=== PATIENT | female | born 1955 | race Caucasian/White ===

== ENCOUNTER → 2016-08-19 | Outpatient (CLI) | payer OTHER ==
[~2016-08-19] MED LIST: GADOBUTROL 10 ML VIAL IVP ONE
--- NOTE | 2016-08-19 17:55 | MR ---
MRI of the Lumbar Spine (Without and With Contrast) Clinical Indications: M51.36. Other intervertebral disk degeneration. Previous lumbar diskectomy. Radiculopathy, sciatica. Technique: Sagittal and axial T1 and T2 MR sequences of the lumbar spine, without contrast. Axial i maging from T12-S1. Postcontrast sagittal and axial T1-weighted images, with the uneventful intraven ous administration of 6 mL of Gadavist, also performed. Findings: Lumbar vertebral bodies are of normal height, without compression fractures. Conus medull ilda appears normal and ends at L1. T11-T12: Sagittal images demonstrate no disk herniation or stenosis. T12-L1: No disk herniation or stenosis. L1-L2: No disk herniation or stenosis. L2-L3: Mild disk bulge and mild bilateral facet arthropathy resulting in mild central canal stenosis , without neural foraminal stenosis. L3-L4: Mild disk bulge and moderate bilateral facet arthropathy resulting in moderate central canal stenosis and mild bilateral neural foraminal stenosis. L4-L5: Mild disk bulge and moderate bilateral facet arthropathy resulting in moderate central canal stenosis and mild to moderate bilateral neural foraminal stenosis. L5-S1: Moderate degenerative disk disease, moderate loss of disk height, endplate diskogenic changes , previous left laminectomy, left S1 perineural lateral recess enhancing granulation tissue, with pre vious partial left facetectomy, resulting in mild to moderate bilateral neural foraminal stenosis, wi thout central canal stenosis. No diskitis, osteomyelitis, or epidural abscess. Impression: 1. L4-L5: Moderate central canal stenosis secondary to moderate degenerative disk disease and disk bulge, slightly worse than the previous study. 2. L5-S1: Previous left laminectomy, with moderate degenerative disk disease, degenerative retrolis thesis resulting in mild to moderate bilateral neural foraminal stenosis, without central canal steno sis. 3. L3-L4: Moderate central canal stenosis and mild bilateral neural foraminal stenosis secondary to mild disk bulge and moderate bilateral facet arthropathy. 4. No evidence of arachnoiditis, diskitis, or osteomyelitis. 5. Please see above findings at specific disk levels.
== END ==
LOC: FIMAGING 09:01
PROVIDERS: ATTEND Anesthesiology Pain Medicine
DX: M51.36 Other intervertebral disc degeneration, lumbar region (principal); M51.37 Other intervertebral disc degeneration, lumbosacral region; M48.06 Spinal stenosis, lumbar region; M48.07 Spinal stenosis, lumbosacral region; M43.17 Spondylolisthesis, lumbosacral region; M51.26 Other intervertebral disc displacement, lumbar region; M12.88 Other specific arthropathies, not elsewhere classified, other specified site
CPT/HCPCS: A9585

== ENCOUNTER 2016-10-29 23:30 | Observation (INO) | payer OTHER ==
[2016-10-29] MEDS ORDERED: LORazepam 2 MG/ML INJ ONE (23:54)
[2016-10-29] MEDS ORDERED: ONDANSETRON 4 MG/2 ML VIAL ONE (23:55)
[2016-10-30] MEDS ORDERED: LORazepam 2 MG/ML INJ IVP ONE (00:19)
[2016-10-30] MEDS ORDERED: NS 500 ML IV ONE (00:19)
[2016-10-30] MEDS ORDERED: ONDANSETRON 4 MG/2 ML VIAL IVP ONE (00:19)
[2016-10-30 00:22] LABS: % IMMATURE GRANULYOCYTES 0.3 % (0.0-1.1); ABSOLUTE IMMATURE GRANULOCYTES 0.02 10^3/uL (0.00-0.10); ADD DIFF? NO; ADD MORPH? NO; ADD SCAN? NO; ATYPICAL LYMPHOCYTE FLAG 0 (0-99); FRAGMENT RBC FLAG 0 (0-99); HEMATOCRIT 36.5 % (38.0-47.0); HEMOGLOBIN 12.6 g/dL (12.6-16.3); LEFT SHIFT FLG 0 (0-99); LIPEMIA HEMOLYSIS FLAG 90 (0-99); MEAN CELL HEMOGLOBIN 30.5 pg (27.9-34.1); MEAN CELL HEMOGLOBIN CONCENTR. 34.5 g/dL (32.4-36.7); MEAN CELL VOLUME 88.4 fL (81.5-99.8); MEAN PLATELET VOLUME 9.1 fL (8.7-11.7); PLATELET CLUMPS FLAG 0 (0-99); PLATELET COUNT 273 10^3/uL (150-400); RED BLOOD CELL COUNT 4.13 10^6/uL (4.18-5.33); RED CELL DISTRIBUTION WIDTH 13.1 % (11.5-15.2)
[2016-10-30 00:36] LABS: ANION GAP 11 mEq/L (8-16); CALCIUM 10.5 mg/dL (8.5-10.4); CARBON DIOXIDE 22 mEq/l (22-31); CHLORIDE 107 mEq/L (97-110); CREATININE 0.8 mg/dL (0.6-1.0); GLOMERULAR FILTRATION RATE > 60; GLUCOSE 167 mg/dL (70-100); POTASSIUM 3.4 mEq/L (3.5-5.2); SODIUM 140 mEq/L (134-144)
--- NOTE | 2016-10-30 01:42 | EDPHY ---
H & P Stated Complaint: leg weakness, N/V, incontinence Time Seen by Provider: 10/29/16 23:45 HPI/ROS: Chief Complaint: Nausea, vomiting, difficulty walking HPI: 60-year-old woman went to bed at 9 o'clock feeling normal. She woke up at 10:15 a.m. with severe nausea and vomiting. She told her she was unable to walk so he carried her to the bathroom. She did have some incontinence of stool which was loose. Has had multiple episodes of vomiting, complaining of not feeling well. Has been in her usual state of health. No fevers or chills. No chest pain or shortness of breath. Has similar episode about a year ago was admitted and had a negative workup. No recent travel or ill contacts. Does have a history of seizure taking medication and is on medications for that. ROS: 10 point Review of Systems is negative except as noted in the HPI. PMH: Seizures, hypothyroid, Medications: Synthroid, Lamictal Allergies: Tramadol and codeine Social History: No smoking, occasional alcohol, no recreational drug use Family History: non-contributory Physical Exam: Gen: Awake, moderate distress, actively dry heaving HEENT: Eyes: PERRLA, EOMI Mouth: Moist mucosa Neck: Supple, no JVD Chest: nontender, lungs clear to auscultation Heart: S1, S2 normal, no murmur Abd: Soft, non-tender, no guarding Back: no CVA tenderness, no midline tenderness Ext: no edema, non-tender Skin: no rash Neuro: CN II-XII intact, Sensation grossly intact, Strength 5/5 in bilateral upper and lower extremities, patient is not compliant with examination in order to assess her cerebellar function - Personal History Current Tetanus/Diphtheria Vaccine: Unsure Current Tetanus Diphtheria and Acellular Pertussis (TDAP): Unsure - Medical/Surgical History Hx Asthma: No Hx Chronic Respiratory Disease: No Hx Diabetes: No Hx Cardiac Disease: No Hx Renal Disease: No Hx Cirrhosis: No Hx Alcoholism: No Hx HIV/AIDS: No Hx Splenectomy or Spleen Trauma: No Other PMH: [place] Seizure-9 yrs ago;Rt hip surgery 2012;Hypothyroidism; Chronic Pain. Laminectomy 1993 - Social History Smoking Status: Never smoked Constitutional: Initial Vital Signs Heart Rate 95 10/29/16 23:32 Respiratory Rate 20 10/29/16 23:32 Blood Pressure 126/79 H 10/29/16 23:32 O2 Sat (%) 100 10/29/16 23:32 O2 Delivery Mode Nasal Cannula O2 (L/minute) 2 Allergies/Adverse Reactions: tramadol Allergy (Verified 10/29/16 23:36) Home Medications: Medication Instructions Recorded Acyclovir [Zovirax 400 mg (*)] 400 mg PO TID PRN 04/17/16 Buprenorphine HCl [Belbuca] 150 mcg BC BID 04/17/16 Hydrocodone/Acetaminophen [[place] 1 each PO DAILY PRN 04/17/16 7.5-325 Tablet] Levothyroxine [Synthroid 75 mcg 75 mcg PO DAILY06 04/17/16 (*)] Pregabalin [Lyrica 50mg (*)] 50 mg PO HS 04/17/16 Venlafaxine Xr [Effexor Xr 75MG 300 mg PO DAILY 04/17/16 (*)] lamoTRIgine [LamICTAL 100 MG (*)] 150 mg PO BID 04/17/16 Aspirin [Aspirin 81mg (*)] 81 mg PO DAILY #0 tab.chew 04/18/16 Atorvastatin Calcium [Lipitor 10 10 mg PO DAILY #30 tab 04/18/16 mg (*)] predniSONE 60 mg PO DAILY 5 Days 04/18/16 Medical Decision Making - Diagnostics Imaging Results: CT scan of the brain is normal per Dr. Melendez Imaging: Discussed imaging studies w/ call center director Radiologist ED Course/Re-evaluation: 60-year-old presenting with new onset of of nausea vomiting and the which appears to be vertigo although the patient is not able to provide me a very good history. She was acutely vomiting in anxious when she arrives so she was given Ativan and Zofran and a L fluid. This caused her to be more sedate and was not waking up adequately to follow instruction for an NIH the exam. In particular is unable to assess her cerebral function. She had no focal weakness however. CT scan of the brain is normal. I have discussed with Dr. Isbell, neurology. Agrees that there is no indication for CT angiogram at this time and feels that MRI would be more appropriate but does not need to be done acutely. Pt is 3.5 hours after last seen normal. Dr Daniel also agrees that pt does not meet criteria for stroke alert. Patient is somnolent but is arousing to voice. I have discussed with Dr. Krueger, hospitalist, who will admit for symtpom control and further evaluation. - Data Points Laboratory Results: Laboratory Results 10/30/16 00:10 10/30/16 00:10 10/30/16 10/30/16 10/30/16 00:10 00:10 00:10 WBC 7.28 10^3/uL 10^3/uL (3.80-9.50) RBC 4.13 10^6/uL L 10^6/uL (4.18-5.33) Hgb 12.6 g/dL g/dL (12.6-16.3) Hct 36.5 % L % (38.0-47.0) MCV 88.4 fL fL (81.5-99.8) MCH 30.5 pg pg (27.9-34.1) MCHC 34.5 g/dL g/dL (32.4-36.7) RDW 13.1 % % (11.5-15.2) Plt Count 273 10^3/uL 10^3/uL (150-400) MPV 9.1 fL fL (8.7-11.7) Neut % (Auto) 57.1 % % (39.3-74.2) Lymph % (Auto) 31.6 % % (15.0-45.0) [place] % (Auto) 6.5 % % (4.5-13.0) Eos % (Auto) 3.4 % % (0.6-7.6) Baso % (Auto) 1.1 % % (0.3-1.7) Nucleat RBC Rel Count 0.0 % % (0.0-0.2) Absolute Neuts (auto) 4.16 10^3/uL 10^3/uL (1.70-6.50) Absolute Lymphs (auto) 2.30 10^3/uL 10^3/uL (1.00-3.00) Absolute Monos (auto) 0.47 10^3/uL 10^3/uL (0.30-0.80) Absolute Eos (auto) 0.25 10^3/uL 10^3/uL (0.03-0.40) Absolute Basos (auto) 0.08 10^3/uL 10^3/uL (0.02-0.10) Absolute Nucleated RBC 0.00 10^3/uL 10^3/uL (0-0.01) Immature Gran % 0.3 % % (0.0-1.1) Immature Gran # 0.02 10^3/uL 10^3/uL (0.00-0.10) Sodium 140 mEq/L mEq/L (134-144) Potassium 3.4 mEq/L L mEq/L (3.5-5.2) Chloride 107 mEq/L mEq/L (97-110) Carbon Dioxide 22 mEq/l mEq/l (22-31) Anion Gap 11 mEq/L mEq/L (8-16) BUN 27 mg/dL H mg/dL (7-23) Creatinine 0.8 mg/dL mg/dL (0.6-1.0) Estimated GFR > 60 Glucose 167 mg/dL H mg/dL (70-100) Calcium 10.5 mg/dL H mg/dL (8.5-10.4) Triglycerides Pending Cholesterol Pending Cholesterol Risk Factr Pending LDL Cholesterol, Calc Pending LDL Risk Factor Pending VLDL Cholesterol Pending Non-HDL Cholesterol Pending HDL Cholesterol Pending LDL/HDL Ratio Pending Cholesterol/HDL Ratio Pending Medications Given: Discontinued Medications Sodium Chloride (Ns) 500 mls @ 0 mls/hr IV ONCE ONE PRN Reason: Wide Open Stop: 10/30/16 00:20 Last Admin: 10/30/16 00:10 Dose: 500 mls Lorazepam (Ativan Injection) 1 mg IVP EDNOW ONE Stop: 10/30/16 00:20 Last Admin: 10/30/16 00:22 Dose: 1 mg Ondansetron HCl (Zofran) 4 mg IVP EDNOW ONE Stop: 10/30/16 00:20 Last Admin: 10/30/16 00:11 Dose: 4 mg Departure - Departure Disposition: [facility] Clinical Impression: Vomiting, Ataxia Condition: Fair
[2016-10-30] MEDS ORDERED: ONDANSETRON 4 MG/2 ML VIAL IVP PRN (01:54)
[2016-10-30] MEDS ORDERED: ONDANSETRON DISINTEGRATING 4 MG TAB PO PRN (01:54)
[2016-10-30] MEDS ORDERED: ACETAMINOPHEN 325 MG TAB PO PRN (01:54)
[2016-10-30] MEDS ORDERED: NS 1,000 ML IV SCH (02:00)
--- NOTE | 2016-10-30 02:03 | CPEKG ---
Heart Rate: 85 RR Interval: 706 P-R Interval: 176 QRSD Interval: 112 QT Interval: 428 QTC Interval: 509 P [place]: 67 QRS [place]: 67 T Wave [place]: 22 EKG Severity - ABNORMAL ECG - EKG Impression: SINUS RHYTHM EKG Impression: NONSPECIFIC INTRAVENTRICULAR CONDUCTION DELAY Electronically Signed By: Mitra Douglas 30-Oct-2016 10:33:55
[2016-10-30 02:25] LABS: CHOLESTEROL 240 mg/dL (140-220); CHOLESTEROL/HDL RATIO 2.96 RATIO (1.00-4.44); HIGH DENSITY LIPOPROTEIN 81 mg/dL (40-85); LDL/HDL RATIO 1.72 RATIO (1.00-3.22); LOW DENSITY LIPOPROTEIN 139 mg/dL (80-100); NON-HIGH DENSITY LIPOPROTEIN 159 mg/dL (90-129); TRIGLYCERIDE 102 mg/dL (35-135); VERY LOW DENSITY LIPOPROTEINS 20 mg/dL (8-25)
--- NOTE | 2016-10-30 05:16 | PDGENHP ---
History and Physical - Chief Complaint vomiting, ataxia - History of Present Illness Pt is 60/F with hypothyroidism, chronic pain, h/o seizure disorder well controlled on lamictal who presents to the ED with complaint of nausea, vomiting and difficulty walking. On my evaluation, history is provided by patient's boyfriend due to patient sedation. He states he appeared to be in her normal state of health throughout the previous day, they went out to dinner without event. By 9pm, patient reported that she felt tired and went to sleep. She awoke about an hour later with acute onset nausea. On attempt to get up to go to the bathroom, she told her boyfriend she felt she couldn't walk. Denied any vertigo symptoms, just intense nausea. He then carried her to the toilet where she had several episodes of nonbloody/nonbilious vomiting. She continued to feel nausea, was unable to walk, so he decided to bring her to the ED for further evaluation. Of note, patient had a very similar presentation to [facility] in 04/2016. Initial concern was for TIA/CVA because patient reported an ataxic gait/difficulty ambulating, as well as the nausea/vomiting. TIA work up, including TTE, telemetry monitoring, MRI brain and Carotid US, were largely unremarkable. Neurology consultation felt her presentation may have been related to a peripheral neuritis resulting in an atypical vertiginous syndrome. She was given a trial of prednisone for this and scheduled for outpatient neurology follow up. Given patient's current sedation, cannot clarify the details of follow up at this time. On arrival to the ED, patient was afebrile, hemodynamically stable, saturating well on room air. She was heaving and significantly nauseous, without improvement with zofran, so she was given IV ativan. This improved her nausea/ retching, but it also significantly sedated her. Further neuro exam was difficult after this. Her labs showed mild hypokalemia, but were otherwise unremarkable. CT head did not show any acute pathology. She was then admitted to the hospitalist service for further management. History Information - Allergies/Home Medication List Allergies/Adverse Reactions: tramadol Allergy (Verified 10/29/16 23:36) Home Medications: Acyclovir [Zovirax 400 mg (*)] 400 mg PO TID PRN 04/17/16 [Last Taken 1 Month Ago] Buprenorphine HCl [Belbuca] 150 mcg BC BID 04/17/16 [Last Taken 04/16/16 21:00] Hydrocodone/Acetaminophen [[place] 7.5-325 Tablet] 1 each PO DAILY PRN 04/17/16 [ Last Taken 3 Weeks Ago] Levothyroxine [Synthroid 75 mcg (*)] 75 mcg PO DAILY06 04/17/16 [Last Taken 05/22] Pregabalin [Lyrica 50mg (*)] 50 mg PO HS 04/17/16 [Last Taken 3 Days Ago] Venlafaxine Xr [Effexor Xr 75MG (*)] 300 mg PO DAILY 04/17/16 [Last Taken ] lamoTRIgine [LamICTAL 100 MG (*)] 150 mg PO BID 04/17/16 [Last Taken 04/16/16 21 :00] I have personally reviewed and updated: family history, medical history, social history, surgical history - Past Medical History Additional medical history: seizure disorder (one GTC seizure 9 years ago, on lamictal since). chronic pain. degenerative disc disease - Surgical History Additional surgical history: R hip labrum tear repair. laminectomy L5-S1 - Family History Additional family history: M: lymphoma. F: brain tumor. 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 Lives with boyfriend. Review of Systems ROS: 10pt was reviewed & negative except for what was stated in HPI & below Physical Exam Temp Pulse Resp BP Pulse Ox 35.7 C L 96 16 97/61 L 94 10/30/16 03:06 10/30/16 04:00 10/30/16 04:00 10/30/16 03:06 10/30/16 04:00 O2 (L/minute) 2 Constitutional: no apparent distress, not in pain, other (sedated) Eyes: PERRL, anicteric sclera, EOMI, other (bilateral mydriasis; pupils 4mm, but reactive to light) Ears, Nose, Mouth, Throat: moist mucous membranes, hearing normal, ears appear normal, no oral mucosal ulcers Cardiovascular: regular rate and rhythym, no murmur, rub, or gallop, pulses symmetric bilaterally, No JVD, No edema Peripheral Pulses: 2+: dorsalis-pedis (R), dorsalis-pedis (L) Respiratory: no respiratory distress, no rales or rhonchi, clear to auscultation Gastrointestinal: normoactive bowel sounds, soft, non-tender abdomen, no palpable masses, No guarding, No rebound Genitourinary: no bladder fullness, no bladder tenderness Skin: warm, normal color, no rashes or abrasions, no fluctuance, no induration, No mottled Musculoskeletal: full muscle strength, no muscle tenderness, normal joint ROM, no joint effusions Neurologic: other (very sedated but arousable to tactile stimuli; CN II- XII grossly intact; moving all extremities equally; sensation to light touch intact ; unable to assess gait/cerebellar function due to sedation) Lab Data & Imaging Review 10/30/16 04:44 10/30/16 04:44 WBC 7.28 10^3/uL (3.80-9.50) 10/30/16 00:10 RBC 4.13 10^6/uL (4.18-5.33) L 10/30/16 00:10 Hgb 12.6 g/dL (12.6-16.3) 10/30/16 00:10 Hct 36.5 % (38.0-47.0) L 10/30/16 00:10 MCV 88.4 fL (81.5-99.8) 10/30/16 00:10 MCH 30.5 pg (27.9-34.1) 10/30/16 00:10 MCHC 34.5 g/dL (32.4-36.7) 10/30/16 00:10 RDW 13.1 % (11.5-15.2) 10/30/16 00:10 Plt Count 273 10^3/uL (150-400) 10/30/16 00:10 MPV 9.1 fL (8.7-11.7) 10/30/16 00:10 Neut % (Auto) 57.1 % (39.3-74.2) 10/30/16 00:10 Lymph % (Auto) 31.6 % (15.0-45.0) 10/30/16 00:10 [place] % (Auto) 6.5 % (4.5-13.0) 10/30/16 00:10 Eos % (Auto) 3.4 % (0.6-7.6) 10/30/16 00:10 Baso % (Auto) 1.1 % (0.3-1.7) 10/30/16 00:10 Nucleat RBC Rel Count 0.0 % (0.0-0.2) 10/30/16 00:10 Absolute Neuts (auto) 4.16 10^3/uL (1.70-6.50) 10/30/16 00:10 Absolute Lymphs (auto) 2.30 10^3/uL (1.00-3.00) 10/30/16 00:10 Absolute Monos (auto) 0.47 10^3/uL (0.30-0.80) 10/30/16 00:10 Absolute Eos (auto) 0.25 10^3/uL (0.03-0.40) 10/30/16 00:10 Absolute Basos (auto) 0.08 10^3/uL (0.02-0.10) 10/30/16 00:10 Absolute Nucleated RBC 0.00 10^3/uL (0-0.01) 10/30/16 00:10 Immature Gran % 0.3 % (0.0-1.1) 10/30/16 00:10 Immature Gran # 0.02 10^3/uL (0.00-0.10) 10/30/16 00:10 Sodium 140 mEq/L (134-144) 10/30/16 00:10 Potassium 3.4 mEq/L (3.5-5.2) L 10/30/16 00:10 Chloride 107 mEq/L (97-110) 10/30/16 00:10 Carbon Dioxide 22 mEq/l (22-31) 10/30/16 00:10 Anion Gap 11 mEq/L (8-16) 10/30/16 00:10 BUN 27 mg/dL (7-23) H 10/30/16 00:10 Creatinine 0.8 mg/dL (0.6-1.0) 10/30/16 00:10 Estimated GFR > 60 10/30/16 00:10 Glucose 167 mg/dL (70-100) H 10/30/16 00:10 Calcium 10.5 mg/dL (8.5-10.4) H 10/30/16 00:10 Triglycerides 102 mg/dL (35-135) 10/30/16 00:10 Cholesterol 240 mg/dL (140-220) H 10/30/16 00:10 Cholesterol Risk Factr 0.5 (0.2-1.0) 10/30/16 00:10 LDL Cholesterol, Calc 139 mg/dL (80-100) H 10/30/16 00:10 LDL Risk Factor 0.6 (0.2-1.0) 10/30/16 00:10 VLDL Cholesterol 20 mg/dL (8-25) 10/30/16 00:10 Non-HDL Cholesterol 159 mg/dL (90-129) H 10/30/16 00:10 HDL Cholesterol 81 mg/dL (40-85) 10/30/16 00:10 LDL/HDL Ratio 1.72 RATIO (1.00-3.22) 10/30/16 00:10 Cholesterol/HDL Ratio 2.96 RATIO (1.00-4.44) 10/30/16 00:10 Visualized and Interpreted imaging results: Yes Interpretation: CT head: no acute abnormalities Visualized and Interpreted EKG results: Yes EKG Interpretation: Positive for: normal sinsus rhythm Assessment & Plan Assessment: Pt is 60/F with hypothyroidism, remote history of seizure disorder, chronic pain who presents to the ed with nausea/vomiting associated with ataxic gait. ED work up is largely unrevealing, she had a similar presentation to [facility] in 2015, symptoms were attributed to possible peripheral vestibular neuritis. Plan: # nausea/vomiting Symptoms were intractable, since onset at about 10pm. She denied any associated vertigo/room spinning, but was unable to walk. 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 Will provide symptomatic treatment with anti-emetics, IVF hydration and repletion of electrolytes. # ataxic gait Again, patient had a very similar presentation in 04/2016. Work up performed at that time included: MRI brain, carotid US, TTE and casino host. All of this was unrevealing. She was treated with prednisone for presumed vestibular neuritis, as well as initiated on aspirin/statin therapy. CT head performed today is again unremarkable. Will perform full cerebellar neuro exam when patient less sedated, consult neurology to assess need for repeat imaging and obtain PT/OT evaluation. Will also continue telemetry monitoring, check lipid panel and TSH. # hypothyroidism Check TSH and cont home synthroid. # chronic back pain Continue home regimen. # seizure disorder Confirm and cont home med. # dispo: admit to observation # Full code
[2016-10-30 05:26] LABS: % IMMATURE GRANULYOCYTES 0.3 % (0.0-1.1); ABSOLUTE IMMATURE GRANULOCYTES 0.03 10^3/uL (0.00-0.10); ADD DIFF? NO; ADD MORPH? NO; ADD SCAN? NO; ATYPICAL LYMPHOCYTE FLAG 0 (0-99); FRAGMENT RBC FLAG 0 (0-99); HEMOGLOBIN 11.3 g/dL (12.6-16.3); LEFT SHIFT FLG 10 (0-99); LIPEMIA HEMOLYSIS FLAG 80 (0-99); MEAN CELL HEMOGLOBIN 30.4 pg (27.9-34.1); MEAN CELL HEMOGLOBIN CONCENTR. 33.2 g/dL (32.4-36.7); MEAN CELL VOLUME 91.4 fL (81.5-99.8); MEAN PLATELET VOLUME 9.1 fL (8.7-11.7); PLATELET CLUMPS FLAG 0 (0-99); PLATELET COUNT 236 10^3/uL (150-400); RED BLOOD CELL COUNT 3.72 10^6/uL (4.18-5.33); RED CELL DISTRIBUTION WIDTH 13.2 % (11.5-15.2)
[2016-10-30 05:30] LABS: PROTIME(PATIENT) 13.1 SEC (12.0-15.0)
[2016-10-30 05:31] LABS: APTT 26.3 SEC (23.0-38.0)
[2016-10-30 05:36] LABS: ANION GAP 10 mEq/L (8-16); CARBON DIOXIDE 26 mEq/l (22-31); CHLORIDE 108 mEq/L (97-110); CREATININE 0.7 mg/dL (0.6-1.0); GLOMERULAR FILTRATION RATE > 60; GLUCOSE 109 mg/dL (70-100); MAGNESIUM 2.2 mg/dL (1.6-2.3); POTASSIUM 4.3 mEq/L (3.5-5.2); SODIUM 144 mEq/L (134-144)
[2016-10-30] MEDS ORDERED: ACYCLOVIR 400 MG TAB PO PRN (10:11)
--- NOTE | 2016-10-30 10:12 | HOSPPROG ---
Hospitalist Progress Note Assessment/Plan: Pt is 60/F with hypothyroidism, remote history of seizure disorder, chronic pain who presents to the ed with nausea/vomiting associated with ataxic gait. ED work up is largely unrevealing, she had a similar presentation to [facility] in 2015, symptoms were attributed to possible peripheral vestibular neuritis. Reviewed her care with Dr Amin (neurology)/ to get brain MRI and spine MRI/ trial of prednisone. # nausea/vomiting symptoms were intractable last night patient is on Belbuca which may attribute to this no vertiginous symptoms but couldn't walk # ataxic gait ST, PT and OT to see neurology consult CT of head showed nothing acute MRI on last admission showed nothing acute she describes her legs giving out/unable to do foot presses during my eval on last admit was thought to be vestibular neuritis * MRI results from Aug 2016 / lumbar spine/ L4-L5 mod central canal stenosis, disc bulge, L5-S1 retrolisthesis resulting gin mild to mod bilateral neural foraminal stenosis, L3-L4 moderate canal stenosis and mild bilateral neural foraminal stenosis secondary to mild disk bulge and moderate bilateral facet arthropathy. * patient states she is falling frequently, no pain involved, but simply can't hold herself up #. Hyperlipidemia had been on statin in past, but was stopped/ concern causing muscle aches # hypothyroidism Synthroid TSH is 2.58 # chronic back pain * Continue home regimen. # seizure disorder * resume home meds. # dispo: pending/ will need to see if she has the ability to walk. MRI this evening. Subjective: Bella has no pain, but weakness in her legs. Objective: Vital Signs Temp Pulse Resp BP Pulse Ox 37.1 C 99 16 104/58 L 91 L 10/30/16 07:20 10/30/16 07:20 10/30/16 07:20 10/30/16 07:20 10/30/16 07:20 Laboratory Results 10/30/16 04:44 10/30/16 04:44 10/29/16 10/30/16 10/31/16 05:59 05:59 05:59 Intake Total 1000 Output Total 400 300 Balance 600 -300 PT 13.1 SEC (12.0-15.0) 10/30/16 04:44 INR 1.00 (0.83-1.16) 10/30/16 04:44 - Physical Exam Constitutional: no apparent distress, appears nourished, not in pain Eyes: PERRL Ears, Nose, Mouth, Throat: hearing normal Cardiovascular: regular rate and rhythym Respiratory: no respiratory distress Gastrointestinal: normoactive bowel sounds Skin: warm, normal color Musculoskeletal: generalized weakness, other (can't do bilateral push down with her toes) Neurologic: AAOx3 Psychiatric: interacting appropriately ICD10 Worksheet Patient Problems: Problems Problem Status Onset Ataxia Acute Vomiting Acute Dehydration Acute Diarrhea Acute
[2016-10-30] MEDS ORDERED: PSEUDOEPHEDRINE HCL 30 MG TAB PO PRN (10:17)
[2016-10-30] MEDS ORDERED: NON-FORMULARY NEW DRUG (Hydrocodone/Acetaminophen [Norco 7.5-325 Tablet] 1 EACH) PO PRN (10:17)
[2016-10-30] MEDS ORDERED: CETIRIZINE 10 MG TAB PO PRN (10:17)
[2016-10-30] MEDS ORDERED: RIZATRIPTAN BENZOATE PO PRN (10:17)
[2016-10-30] MEDS ORDERED: TEARS/DEXTRAN 70/HYPROMELLOSE 15 ML OPHT.BTL EACHEYE PRN (10:17)
[2016-10-30] MEDS ORDERED: Lamotrigine [Lamictal Xr] 300 MG PO SCH ×2 (11:00→21:00)
[2016-10-30] MEDS: VENLAFAXINE XR 150 MG CAP PO SCH (11:39)
[2016-10-30] MEDS: HYDROCODONE/APAP 10/325 TAB PO PRN ×2 (11:39→16:02)
[2016-10-30] MEDS ORDERED: LORazepam 1 MG TAB PO ONE ×2 (14:54→18:30)
[2016-10-30] MEDS: predniSONE 20 MG TAB PO SCH (15:24)
--- NOTE | 2016-10-30 16:25 | NEUROPROG ---
Assessment: CC: Consulted by Dr. Krueger for N/V, Dizziness, Gait Disturbance.~ Results placed in EMR for her review. Narrative Summary: This female patient was initially seen 04/17/16 as an inpatient consult.~ The day prior to then she developed acute onset dizziness and gait issues.~ She then got N/V.~ She came to the hospital and was admitted.~ A brain MRI w/o con was unremarkable and an echocardiogram and carotid U/S showed no signficant problems.~ Her neurologic exam showed some leg weakness that was fluctuating so it was felt to be likely due to stress.~ She was felt to have a likely acute peripheral vertigo syndrome with dehydration so I gave her 7 days of prednisone 60mg, referred to physical therapy for vestibular rehab, and recommended rehydration.~ She was told to f/u in 4-6 weeks. F/U on 05/20/16.~ Her TSH was high at 6.4 and her total T3 was also low.~ CK normal at 40 in .~ She continues to get better but still has some residual left hip pain for which she is going to see her orthopedist for.~ She did have a flu shot one week prior to getting sick so wonders if this could have caused her illness.~ Her PCM started her on aspirin 81mg qd and lipitor.~ She continued to take Lamictal 150mg bid for seizure prevention after a single seizure in 2006.~ She reported previous abnormal EEG's (x2).~ I will repeat an EEG today and change her Lamictal 150mg bid to Lamictal XR 300mg qd.~ She will f /u~in 4 weeks~to to review the EEG results.~ We also discussed various supplements to include Co-enzyme Q10 and pro-biotics. F/U on 06/25/16.~ She was on levothyroxine for her low thyroid.~ Her EEG on 06/21 was normal.~ She was on Lamictal XR 300mg qd and tolerating it well w/o further seizures (none since 2006).~ She continued to work with her orthopedist and pain doctor for lower back and hip pain.~ She had migraines avg x2 days/ month controlled with maxalt 10mg prn so I refilled that for her.~ She was told to f/u~in 12 months. HPI: The patient had been admitted to [facility] on~10/30/16.~ She had developed acute N/V adn felt global weakness.~ She felt her it was difficult to walk so went to the ER.~ At the ER she was given ativan which improved symptoms but made her drowsy so she was admitted.~ Head CT was normal.~~When I evaluated her she still had bilateral leg weakness but the N/V had resolved. PMHx: prior single seizure 2006, chronic pain disorder, prior laminectomy L5/S1 , degen disc disease, R hip problems, peripheral vertigo syndrome SHx: no tobacco FHx: cancer ROS: Pt denied acute fever, total vision loss, active severe chest pain, respiratory failure, total body severe rash, total bowel/bladder incontinence, psychosis, active seizures, or active bleeding O: bp 104/58 P99 RR16 Satting 91% on 1LNC Temp 37.1C Labs: 04/17/16- CMP Na 145 BUN 28 Gluc 104, LDL 117, TSH elevated at 7 10/30/16- CBC Hct 36.5L, Coags wnl, Chem BUN 28H Gluc 109H, LDL 139H, TSH wnl Rads: 04/17/16- TTE showed no cardio-embolic source 04/17/16- Brain MRI w/o con: unremarkable 04/17/16- CArotid U/S: no hemodynamically significant stenosis 04/17/16- telemetry showed no afib 06/17/16- EEG: essentially normal 10/30/16- Head CT w/o con: unremarkable (I personally visualized the images on~) Assessment: 1. Recurrent Episode of bilateral leg weakness and N/V on 04/16/16 and again on 10/30/16: Unclear cause given prior normal brain MRI and normal head CT. I will evaluate for any brain or spinal cord demylination and also try giving a 5 day course of prednisone to see if it helps symptoms improve. 2. History of Single Seizure in 2006: Normal brain MRI w/o con on 04/17/16 and normal EEG on 06/17/16 so no clear explanation.~ She prefers to stay on an anti- epileptic medication at this time. 3. Hypothyroidism: on levothyroxine to address 4. Migraine Headaches: Avg 2 days/month.~ Controlled with prn Maxalt Plan: - Brain and total spine MRI w/ and w/o con - Continue Maxalt 10mg po prn (Use less than 11 days/month) - Burst of Prednisone 5 days: 60/60/40/40/20 - Continue Lamictal XR 300mg qd - After discharge, F/U in 3-6 weeks in outpatient neurology clinic to assess response after discharge Neurology will continue to follow closely Objective: Vital Signs Temp Pulse Resp BP Pulse Ox 36.8 C 91 18 102/64 90 L 10/30/16 15:58 10/30/16 15:58 10/30/16 15:58 10/30/16 15:58 10/30/16 15:58 Laboratory Results 10/30/16 04:44 10/30/16 04:44 10/29/16 10/30/16 10/31/16 05:59 05:59 05:59 Intake Total 1000 Output Total 400 300 Balance 600 -300 PT 13.1 SEC (12.0-15.0) 10/30/16 04:44 INR 1.00 (0.83-1.16) 10/30/16 04:44 Allergies/Adverse Reactions: tramadol Allergy (Verified 10/29/16 23:36)
[2016-10-30] MEDS ORDERED: HYDROCODONE/APAP 5/325 TAB PO PRN (16:35)
[2016-10-30] MEDS ORDERED: GADOBUTROL 10 ML VIAL IVP ONE (20:18)
[2016-10-30] MEDS ORDERED: PROGESTERONE,MICR 100 MG CAP PO SCH (21:00)
[2016-10-30] MEDS: Buprenorphine Hcl [Belbuca] 150 MCG BC SCH (22:11)
[2016-10-31 05:51] VITALS: PULSE 82
[2016-10-31] MEDS ORDERED: LEVOTHYROXINE 75 MCG TAB PO SCH (06:00)
[2016-10-31 07:40] VITALS: BP 108/67; RESP 15; TEMP 98.8; O2SAT 92
[2016-10-31] MEDS ORDERED: ASPIRIN 81 MG CHEWABLE TAB PO SCH (09:00)
[2016-10-31] MEDS ORDERED: NON-FORMULARY NEW DRUG (Cholecalciferol (Vitamin D3) [Vitamin D3] 5,000 UNIT) PO SCH (09:00)
[2016-10-31] MEDS ORDERED: ESTRADIOL 0.5 MG TAB PO SCH (09:00)
[2016-10-31] MEDS ORDERED: CHOLECALCIFEROL VIT D3 2,000 UNITS TAB/CAP PO SCH (09:00)
[2016-10-31] MEDS ORDERED: Herbals/Supplements -Info Only PO SCH (09:00)
[2016-10-31] MEDS: predniSONE 20 MG TAB PO SCH (09:14)
[2016-10-31] MEDS: Buprenorphine Hcl [Belbuca] 150 MCG BC SCH ×2 (09:14→12:16)
[2016-10-31] MEDS: VENLAFAXINE XR 150 MG CAP PO SCH (09:15)
--- NOTE | 2016-10-31 09:26 | HOSPPROG ---
Hospitalist Progress Note Assessment/Plan: Pt is 60/F with hypothyroidism, remote history of seizure disorder, chronic pain who presents to the ed with nausea/vomiting associated with ataxic gait. ED work up is largely unrevealing, she had a similar presentation to [facility] in 2015, symptoms were attributed to possible peripheral vestibular neuritis. # nausea/vomiting resolved/ eating and drinking well # ataxic gait/bilateral leg weakness symptoms much improved started on steroids MRI of brain and spine show nothing acute CT of head showed nothing acute #. Hyperlipidemia had been on statin in past, but was stopped/ concern causing muscle aches # hypothyroidism Synthroid TSH is 2.58 # chronic back pain * Continue home regimen. # seizure disorder * resume home meds. # dispo: dc today after Dr Amin updates patient and her on plan of care. Subjective: Bella is feeling well, got out of bed without any difficulty. Objective: Vital Signs Temp Pulse Resp BP Pulse Ox 37.1 C 82 15 108/67 92 10/31/16 07:35 10/31/16 07:35 10/31/16 07:35 10/31/16 07:35 10/31/16 07:35 Laboratory Results 10/30/16 04:44 10/30/16 04:44 10/30/16 10/31/16 11/01/16 05:59 05:59 05:59 Intake Total 1000 850 Output Total 400 600 Balance 600 250 PT 13.1 SEC (12.0-15.0) 10/30/16 04:44 INR 1.00 (0.83-1.16) 10/30/16 04:44 - Physical Exam Constitutional: no apparent distress, appears nourished, not in pain Eyes: PERRL Ears, Nose, Mouth, Throat: hearing normal Respiratory: no respiratory distress Gastrointestinal: normoactive bowel sounds Skin: warm, normal color Neurologic: AAOx3 Psychiatric: interacting appropriately, not anxious ICD10 Worksheet Patient Problems: Problems Problem Status Onset Ataxia Acute Vomiting Acute Dehydration Acute Diarrhea Acute
--- NOTE | 2016-10-31 17:03 | GDS ---
[f rep st] DISCHARGE SUMMARY DISCHARGE DIAGNOSES: 1. Nausea and vomiting. 2. Ataxic gait with associated bilateral leg weakness. 3. Hyperlipidemia. 4. Hypothyroidism. 5. Chronic back pain. 6. Seizure disorder. CONSULTATIONS DURING STAY: Dr. Severo Amin. HISTORY: Briefly, the patient is a 60-year-old woman with a history of hypothyroidism, chronic pain , and history of seizure disorder, who presented to the emergency room with complaints of nausea, vo miting, difficulty walking. She was in her normal state of health prior to her admission, and then went to out dinner without event. By 9 p.m., she felt tired and went to sleep. She woke up an hour later with acute onset of nausea. On attempting to go to the bathroom, she told her boyfriend she could not walk. She had no vertiginous symptoms, just intense nausea. She had a very similar prese ntation in April of 2016. At that time, the initial concern was a TIA versus a CVA, because of at axic gait. Neurology consultation felt her presentation may have been related to peripheral neuriti s at that time. During her stay, she had an MRI of her brain and her spine, which showed nothing [place]. She will follow up with Dr. Severo Amin in the outpatient setting. HOSPITAL COURSE PER PROBLEM: 1. Acute nausea and vomiting. Symptoms have resolved. She is eating and drinking well. 2. Ataxic gait with bilateral weakness. Her symptoms have markedly improved. She was given an ora l dose of prednisone. She will continue this for a few more days. A CT of the head showed nothing acute. MRI brain and spine showed nothing acute. 3. Hyperlipidemia. Had been on a statin in the past, but stopped because of concern that this was causing muscle aches. 4. Hypothyroidism. She is on Synthroid. TSH is 2.58. 5. Chronic back pain. Her home regimen had been continued. 6. Seizure disorder. Home medications have been resumed. PENDING LABS AND TESTS: None. CONDITION AT DISCHARGE: Stable. Blood pressure is 108/67, O2 saturation on room air 92%, respirato ry rate is 15, heart rate is 82, temperature 37.1 Celsius. MEDICATIONS AT DISCHARGE: Please see the EMR. DISCHARGE INSTRUCTIONS: Follow up with Dr. Severo Amin for further evaluation. Greater than 35 minutes discharging and coordinating care. /[id number]/MODL
--- NOTE | 2016-10-31 20:04 | NEUROPROG ---
Assessment: CC: Consulted by Dr. Krueger for N/V, Dizziness, Gait Disturbance.~ Results placed in EMR for her review. Narrative Summary: This female patient was initially seen 04/17/16 as an inpatient consult.~ The day prior to then she developed acute onset dizziness and gait issues.~ She then got N/V.~ She came to the hospital and was admitted.~ A brain MRI w/o con was unremarkable and an echocardiogram and carotid U/S showed no signficant problems.~ Her neurologic exam showed some leg weakness that was fluctuating so it was felt to be likely due to stress.~ She was felt to have a likely acute peripheral vertigo syndrome with dehydration so I gave her 7 days of prednisone 60mg, referred to physical therapy for vestibular rehab, and recommended rehydration.~ She was told to f/u in 4-6 weeks. F/U on 05/20/16.~ Her TSH was high at 6.4 and her total T3 was also low.~ CK normal at 40 in .~ She continues to get better but still has some residual left hip pain for which she is going to see her orthopedist for.~ She did have a flu shot one week prior to getting sick so wonders if this could have caused her illness.~ Her PCM started her on aspirin 81mg qd and lipitor.~ She continued to take Lamictal 150mg bid for seizure prevention after a single seizure in 2006.~ She reported previous abnormal EEG's (x2).~ I will repeat an EEG today and change her Lamictal 150mg bid to Lamictal XR 300mg qd.~ She will f /u~in 4 weeks~to to review the EEG results.~ We also discussed various supplements to include Co-enzyme Q10 and pro-biotics. F/U on 06/25/16.~ She was on levothyroxine for her low thyroid.~ Her EEG on 06/21 was normal.~ She was on Lamictal XR 300mg qd and tolerating it well w/o further seizures (none since 2006).~ She continued to work with her orthopedist and pain doctor for lower back and hip pain.~ She had migraines avg x2 days/ month controlled with maxalt 10mg prn so I refilled that for her.~ She was told to f/u~in 12 months. The patient had been admitted to [facility] on~10/30/16.~ She had developed acute N/V adn felt global weakness.~ She felt her it was difficult to walk so went to the ER.~ At the ER she was given ativan which improved symptoms but made her drowsy so she was admitted.~ Head CT was normal.~~When I evaluated her she still had bilateral leg weakness but the N/V had resolved. HPI: F/U on 10/31/16 as hospital inpt consult. Brain and total spine MRI showed no acute changes (mild to moderate stenosis and degen changes in cervical and lumbar region w/o cord compression). Pt's symptoms resolved on prednisone. PT felt safe to ambulate. Doing well. Will d/c. PMHx: prior single seizure 2006, chronic pain disorder, prior laminectomy L5/S1 , degen disc disease, R hip problems, peripheral vertigo syndrome SHx: no tobacco FHx: cancer ROS: Pt denied acute fever, total vision loss, active severe chest pain, respiratory failure, total body severe rash, total bowel/bladder incontinence, psychosis, active seizures, or active bleeding O: bp 104/58 P99 RR16 Satting 91% on 1LNC Temp 37.1C Labs: 04/17/16- CMP Na 145 BUN 28 Gluc 104, LDL 117, TSH elevated at 7 10/30/16- CBC Hct 36.5L, Coags wnl, Chem BUN 28H Gluc 109H, LDL 139H, TSH wnl Rads: 04/17/16- TTE showed no cardio-embolic source 04/17/16- Brain MRI w/o con: unremarkable 04/17/16- CArotid U/S: no hemodynamically significant stenosis 04/17/16- telemetry showed no afib 06/17/16- EEG: essentially normal 10/30/16- Brain MRI and total spine MRI: no acte stroke, demylination, cord compression or acute findings; did show stable moderate cervical stenosis and degenerative lumbar changes that looked stable Assessment: 1. Recurrent Episode of bilateral leg weakness and N/V on 04/16/16 and again on 10/30/16: Unclear cause given normal brain and total spine MRI. Improved on oral prednisone 5 days (60/60/40/40/20). Possibly an atypical migraine variant. 2. History of Single Seizure in 2006: Normal brain MRI w/o con on 04/17/16 and normal EEG on 06/17/16 so no clear explanation.~ She prefers to stay on an anti- epileptic medication at this time. 3. Hypothyroidism: on levothyroxine to address 4. Migraine Headaches: Avg 2 days/month.~ Controlled with prn Maxalt Plan: - Continue Maxalt 10mg po prn (Use less than 11 days/month) - Complete Burst of Prednisone 5 days: 60/60/40/40/20 - Continue Lamictal XR 300mg qd - After discharge, F/U in 2-4 weeks in outpatient neurology clinic to assess response after discharge and get EMG/NCS of legs 35 min spent with patient, majority of time spent counseling on prognosis and treatment options. Objective: Vital Signs Temp Pulse Resp BP Pulse Ox 37.1 C 82 15 108/67 92 10/31/16 07:35 10/31/16 07:35 10/31/16 07:35 10/31/16 07:35 10/31/16 07:35 Laboratory Results 10/30/16 04:44 10/30/16 04:44 10/30/16 10/31/16 11/01/16 05:59 05:59 05:59 Intake Total 1000 850 Output Total 400 600 Balance 600 250 PT 13.1 SEC (12.0-15.0) 10/30/16 04:44 INR 1.00 (0.83-1.16) 10/30/16 04:44 Allergies/Adverse Reactions: tramadol Allergy (Verified 10/29/16 23:36)
== END 2016-10-31 14:46 | disposition home or self-care (01) ==
LOC: INTOOBSV 10-30 01:49 → F3N 10-30 02:55
PROVIDERS: ADMIT Internal Medicine; ATTEND Internal Medicine
DX: R11.2 Nausea with vomiting, unspecified (principal); R26.0 Ataxic gait; R29.898 Other symptoms and signs involving the musculoskeletal system; E78.5 Hyperlipidemia, unspecified; E03.9 Hypothyroidism, unspecified; G89.29 Other chronic pain; M54.9 Dorsalgia, unspecified; M25.552 Pain in left hip; G40.909 Epilepsy, unspecified, not intractable, without status epilepticus
CPT/HCPCS: 70450; 70553; 72156; 72157; 72158; 92610; 93005; 96374; 96375; 97161; 99285; G0378; A9585; J2060; J2405

== ENCOUNTER → 2016-11-21 | Outpatient (CLI) | payer OTHER | LOC: CIMAGING 07:34 | DX: Z12.31 Encounter for screening mammogram for malignant neoplasm of breast (principal) | CPT/HCPCS: G0202 ==

== ENCOUNTER → 2018-01-26 | Outpatient (CLI) | payer OTHER | LOC: BMCIMAGING 16:24 | PROVIDERS: ATTEND Podiatrist Foot & Ankle Surgery | DX: M21.621 Bunionette of right foot (principal) ==

== ENCOUNTER 2018-07-20 06:01 | Emergency (ER) | payer OTHER ==
[2018-07-20] MEDS ORDERED: NS 1,000 ML IV ONE (06:23)
[2018-07-20] MEDS ORDERED: PROMETHAZINE HCL 25 MG/ML INJ ONE (06:24)
[2018-07-20] MEDS ORDERED: PROMETHAZINE HCL 25 MG/ML INJ IVP ONE (06:24)
[2018-07-20] MEDS ORDERED: KETOROLAC 15 MG/1 ML SDV IVP ONE (06:46)
[2018-07-20] MEDS ORDERED: DEXAMETHASONE 10 MG/ML VIAL IVP ONE (06:46)
[2018-07-20] MEDS ORDERED: DEXAMETHASONE 4 MG/ML VIAL ONE (06:50)
[2018-07-20 06:53] LABS: PLATELET COUNT 338 10^3/uL (150-400)
--- NOTE | 2018-07-20 06:53 | EDPHY ---
H & P Stated Complaint: migraine with weakness and vomiting Time Seen by Provider: 07/20/18 06:20 HPI/ROS: HPI The patient presents with which she describes as a typical migraine which she has a history of. She said yesterday she went to her sister's house in [place] and was feeling fine, however her legs became weak while she was there and she was unable to drive home. She called her to take her home. She developed some dizziness as well. Last night she had some need nausea. At about 9:00 p.m. She took a dose of p.o. Imitrex. She had some difficulty trying to sleep and woke up at about midnight feeling dizziness and leg weakness as well as dry heaves she took Zofran 8 mg Ativan possibly 1 mg and Imitrex IM. Her symptoms have persisted throughout the morning so she comes in with her . She is able to walk but describes a shuffling gait. She complains of weakness in both of her legs without paresthesias or pain. She does not have a headache, though she does have nausea and vomiting. The patient has a history of similar symptoms on several occasions beginning in 2016. She was admitted at that time and was evaluated for TIA with negative MRI carotid Dopplers. Since then she has been followed by Dr. Elkins of Neurology. 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 At home she has multiple medications to try if she develops these symptoms. However, she tried all of them tonight and was no better so comes in to the ER this morning.. REVIEW OF SYSTEMS 10 systems were reviewed and negative with the exception of the elements mentioned in the history of present illness. 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 PHYSICAL General Appearance: Alert, no distress Eyes: Pupils equal and round no pallor or injection ENT, Mouth: Mucous membranes moist Respiratory: There are no retractions, lungs are clear to auscultation Cardiovascular: Regular rate and rhythm Gastrointestinal: Abdomen is soft and non-tender, no masses, bowel sounds normal Neurological: A&O, cranial nerves 2-12 intact, 5/5 strength in her upper extremities with no pronator drift, normal finger to nose testing, lower extremities are 5/5 in strength as well there is a mild tremor in both of her legs, sensation is intact to light touch throughout her legs Skin: Warm and dry, no rashes Musculoskeletal: Neck is supple non tender Extremities: symmetrical, full range of motion Psychiatric: Patient is oriented X 3, there is no agitation Source: Patient, Family, Old records Exam Limitations: No limitations - Personal History Current Tetanus/Diphtheria Vaccine: Yes Current Tetanus Diphtheria and Acellular Pertussis (TDAP): Yes - Medical/Surgical History Hx Asthma: No Hx Chronic Respiratory Disease: No Hx Diabetes: No Hx Cardiac Disease: No Hx Renal Disease: No Hx Cirrhosis: No Hx Alcoholism: No Hx HIV/AIDS: No Hx Splenectomy or Spleen Trauma: No Other PMH: [place] Seizure-9 yrs ago;Rt hip surgery 2012;Hypothyroidism; Chronic Pain, Laminectomy 1993, Depression, Recently here Leg weakness - Social History Smoking Status: Never smoked Constitutional: Initial Vital Signs Temperature (C) 36.3 C 07/20/18 06:03 Heart Rate 97 07/20/18 06:03 Respiratory Rate 16 07/20/18 06:03 Blood Pressure 127/84 H 07/20/18 06:03 O2 Sat (%) 99 07/20/18 06:03 O2 Delivery Mode Room Air O2 (L/minute) 3 Allergies/Adverse Reactions: tramadol Allergy (Verified 07/20/18 06:04) Home Medications: Medication Instructions Recorded Levothyroxine [Synthroid 75 mcg 75 mcg PO DAILY06 04/17/16 (*)] Venlafaxine Xr [Effexor Xr] 300 mg PO DAILY 10/30/16 lamoTRIgine [LamICTAL XR] 300 mg PO HS 10/30/16 Medical Decision Making Differential Diagnosis: 62-year-old female who has a history of atypical migraines which consist of bilateral leg weakness, dizziness, nausea and vomiting presents with a moderate to severe episode today. Symptoms have not improved with Imitrex, Zofran, Ativan. She presents here for further care. On exam, she actually does have full strength of her legs and no cerebellar findings. She does have a faint tremor of her legs which is worse with movement. She does not have a headache. Plan for treatment with IV fluids, Toradol, Phenergan, Decadron. I will check basic labs I expect they will be normal. I will plan to observe her for several hours here in the emergency department if her symptoms iza, then she could be appropriately discharged home, if not, then she may require admission to the hospital. She is happy with this plan. At 7:30 a.m.- Case is signed out to Dr. Douglas pending patient's reassessment. - Data Points Laboratory Results: Laboratory Results 07/20/18 06:20 07/20/18 06:20 Medications Given: Discontinued Medications Dexamethasone (Decadron Injection) 10 mg IVP EDNOW ONE Stop: 07/20/18 06:47 Last Admin: 07/20/18 06:51 Dose: 10 mg Sodium Chloride (Ns) 1,000 mls @ 0 mls/hr IV EDNOW ONE; Wide Open PRN Reason: Protocol Stop: 07/20/18 06:24 Last Admin: 07/20/18 06:25 Dose: 1,000 mls Ketorolac Tromethamine (Toradol) 15 mg IVP EDNOW ONE Stop: 07/20/18 06:47 Last Admin: 07/20/18 06:51 Dose: 15 mg Promethazine HCl (Phenergan) 12.5 mg IVP ONCE ONE Stop: 07/20/18 06:25 Last Admin: 07/20/18 06:25 Dose: 12.5 mg Departure - Departure Disposition: Home, Routine, Self-Care Clinical Impression: Atypical migraine, Dizziness Leg weakness Qualifiers: Laterality: bilateral Qualified Code(s): R29.898 - Other symptoms and signs involving the musculoskeletal system Condition: Fair Instructions: Migraine Headache (ED) Additional Instructions: Please take her medications as prescribed. I would recommend that you continue taking steroids. Please return to the ER if worse in any way. Please follow- up with Dr. Elkins in the next 1-2 days. Referrals: Arlin Barboza MD [Primary Care Provider] - As per Instructions Severo Amin DO [Medical Doctor] - As per Instructions
[2018-07-20 11:31] VITALS: BP 103/72
== END 2018-07-20 11:31 | disposition home or self-care (01) ==
DX: G43.909 Migraine, unspecified, not intractable, without status migrainosus (principal); R42 Dizziness and giddiness; R29.898 Other symptoms and signs involving the musculoskeletal system; E86.9 Volume depletion, unspecified
CPT/HCPCS: 96374; J1100; J1885; J2550

== ENCOUNTER 2018-08-05 14:33 | Inpatient (IN) | payer OTHER ==
--- NOTE | 2018-08-05 14:43 | EDPHY ---
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;Rt hip surgery 2012;Hypothyroidism; Chronic Pain, Laminectomy 1993, atypical migraines, Leg weakness - Social History Smoking Status: Never smoked Constitutional: Initial Vital Signs Temperature (C) 36.7 C 08/05/18 14:34 Heart Rate 101 H 08/05/18 14:34 Respiratory Rate 30 H 08/05/18 14:34 Blood Pressure 119/76 08/05/18 14:34 O2 Sat (%) 100 08/05/18 14:34 O2 Delivery Mode Nasal Cannula O2 (L/minute) 2 Allergies/Adverse Reactions: tramadol Allergy (Verified 07/20/18 06:04) Home Medications: Medication Instructions Recorded Levothyroxine [Synthroid 75 mcg 75 mcg PO DAILY06 04/17/16 (*)] Venlafaxine Xr [Effexor Xr] 300 mg PO DAILY 10/30/16 lamoTRIgine [LamICTAL XR] 300 mg PO HS 10/30/16 Maxalt 08/05/18 Meclizine HCl [Meclizine HCl 25 mg 25 mg PO QID PRN #14 tab 08/05/18 (RX,OTC)] Phenergan 12.5mg supp (*) 08/05/18 Medical Decision Making - Diagnostics Imaging Results: Imaging Impressions Brain MRI 08/05/18 17:32 Impression: Normal MRI of the brain without contrast. Results called and discussed with Amandeep Westbrook MD at 08/05/2018 18:54. Imaging: Discussed imaging studies w/ banquet server on call Radiologist ED Course/Re-evaluation: CHIEF COMPLAINT: Dizziness, nausea, vomiting HISTORY OF PRESENT ILLNESS: This patient is a 62 year old female with history of atypical migraines. She presents with dizziness, nausea, vomiting, headaches, and diplopia. This morning , she had sudden onset dizziness around 8am while at work. She had associated bilateral leg weakness, which she specifies began in the right leg but seems equal currently. She has medications at home for migraines including one for headache, antiemetics, and steroids. She tried these, not including the steroid , without relief. She went home and continued to feel poorly. She then developed diplopia which she has never had before, so she and her decided to come to the ED for evaluation. She endorses history of grand mal seizure, and takes Lamictal and magnesium. She has had a recent MRI and full neurologic evaluation with Dr. Amin, neurologist. REVIEW OF SYSTEMS: A comprehensive 10 system review of systems is otherwise negative aside from elements mentioned in the history of present illness and medical decision making. PHYSICAL EXAM: HR, BP, O2 Sat, RR. Temp noted General Appearance: Alert, well hydrated, appropriate, and non-toxic appearing. Head: Atraumatic without scalp tenderness or obvious injury Eyes: Nystagmus with leftward gaze. Pupils equal, round, reactive to light and accommodation, EOMI, no trauma, no injection. Ears: Clear bilaterally, no perforation, normal landmarks Nose: Atraumatic, no rhinorrhea, clear. Throat: There is no erythema or exudates, no lesions, normal tonsils, mucus membranes moist. Neck: Supple, 2+ carotid upstroke, nontender, no lymphadenopathy. Respiratory: No retractions, no distress, no wheezes, and no accessory muscle use. Lungs are clear to auscultation bilaterally. Cardiovascular: Regular rate and rhythm, no murmurs, rubs, or gallops. Bilateral carotid, radial, dorsalis pedis, and posterior tibial pulses intact. Good capillary refill all extremities. Gastrointestinal: Abdomen is soft, nontender, non-distended, no masses, no rebound, no guarding, no peritoneal signs. Musculoskeletal: Normal active ROM of all extremities, atraumatic. Neurological: Alert, appropriate, and interactive. The patient has normal DTRs and non-focal cranial nerves, motor, sensory, and cerebellar exam. Skin: No rashes, good turgor, no nodules on palpation. Past medical history: History of seizure. Hypothyroid. Chronic pain. Atypical migraines. Past surgical history: Laminectomy. Right hip surgery. Family history: Noncontributory Social history: Employed, works at [employer]. . Does not abuse tobacco, drugs, or alcohol. DIFFERENTIAL DIAGNOSIS: The differential diagnosis for the patient's dizziness included but was not limited to peripheral and central causes of vertigo, orthostatic causes including dehydration, cardiogenic and neurogenic causes, and blood loss. MEDICAL DECISION MAKIN62 y/o female presents with dizziness, nausea, leg weakness onset this morning. On exam she has notable nystagmus with leftward gaze. Plan to administer Ativan , Decadron, Toradol, and Reglan for symptom relief. 16:50 Patient felt worse after using bedside commode with increasing dizziness. She is now back in bed and sleeping. Reassessed. Patent continues to feel only 50% better and complains of continued dizziness. Plan for MRI brain without contrast. 18:[address] Torres, radiologist. MRI brain negative for acute processes. Reassessed patient. Discussed imaging results. Her symptoms are somewhat resolved at this time. Discussed admission vs. outpatient followup. She and her will discuss this. 19:32 Patient states she is feeling better and would like to go home. Plan to discharge with referral to ENT and prescription for meclizine. Plan for road test prior to discharge. 19:36 When the patient attempted to get up, she was unable to walk. Given this she is not safe for outpatient follow up at this time. We discussed admission for further management of symptoms. She is amenable to this. Spoke with hospitalist service. Dr. Martinez accepts admission for BPPV. - Data Points Medications Given: Discontinued Medications Dexamethasone (Decadron Injection) 10 mg IVP EDNOW ONE Stop: 08/05/18 14:49 Last Admin: 08/05/18 15:00 Dose: 10 mg Ketorolac Tromethamine (Toradol) 30 mg IVP EDNOW ONE Stop: 08/05/18 14:49 Last Admin: 08/05/18 15:00 Dose: 30 mg Lorazepam (Ativan) 1 mg PO EDNOW ONE Stop: 08/05/18 14:49 Last Admin: 08/05/18 16:16 Dose: Not Given Lorazepam (Ativan Injection) 1 mg IVP EDNOW ONE Stop: 08/05/18 16:14 Last Admin: 08/05/18 16:16 Dose: 1 mg Meclizine HCl (Meclizine Hcl) 12.5 mg PO EDNOW ONE Stop: 08/05/18 19:33 Last Admin: 01/30/19 19:40 Dose: 12.5 mg Metoclopramide HCl (Reglan Injection) 10 mg IVP EDNOW ONE Stop: 08/05/18 14:49 Last Admin: 08/05/18 15:01 Dose: 10 mg Ondansetron HCl (Zofran) 4 mg IVP EDNOW ONE Stop: 08/05/18 16:14 Last Admin: 08/05/18 16:16 Dose: 4 mg Departure - Departure Disposition: [facility] Acute Clinical Impression: BPPV (benign paroxysmal positional vertigo) Qualifiers: Laterality: left Qualified Code(s): H81.12 - Benign paroxysmal vertigo, left ear Condition: Fair Instructions: Dizziness (ED) Additional Instructions: Drink plenty of fluids. Return to the emergency department for headache, numbness, weakness, severe vertigo, neck pain, inability to tolerate fluids by mouth or other worsening of condition. Please follow up with your primary care provider. You may also follow up with ENT for further evaluation of your vertigo symptoms as we discussed. Prescriptions: Meclizine HCl [Meclizine HCl 25 mg (RX,OTC)] 25 mg PO QID PRN #14 tab PRN Reason: Dizziness Report Scribed for: Amandeep Westbrook Report Scribed by: Irene Chaves Date of Report: 08/05/18 Time of Report: 14:43
[2018-08-05] MEDS ORDERED: ONDANSETRON 4 MG/2 ML VIAL ONE (14:44)
[2018-08-05] MEDS ORDERED: METOCLOPRAMIDE 10 MG/2 ML VIAL IVP ONE (14:48)
[2018-08-05] MEDS ORDERED: LORazepam 1 MG TAB PO ONE (14:48)
[2018-08-05] MEDS ORDERED: KETOROLAC 30 MG/1 ML SDV IVP ONE (14:48)
[2018-08-05] MEDS ORDERED: DEXAMETHASONE 10 MG/ML VIAL IVP ONE (14:48)
[2018-08-05] MEDS ORDERED: LORazepam 2 MG/ML INJ IVP ONE (16:13)
[2018-08-05] MEDS ORDERED: ONDANSETRON 4 MG/2 ML VIAL IVP ONE (16:13)
[2018-08-05] MEDS ORDERED: LORazepam 2 MG/ML INJ ONE (16:14)
[2018-08-05] MEDS ORDERED: MECLIZINE HCL 25 MG TAB PO ONE (19:32)
[2018-08-05] MEDS ORDERED: PROMETHAZINE HCL 25 MG/ML INJ IVP PRN (20:04)
[2018-08-05] MEDS ORDERED: HYDROCODONE/APAP 5/325 TAB PO PRN (20:04)
[2018-08-05] MEDS ORDERED: LORazepam 0.5 MG TAB PO PRN (20:04)
[2018-08-05] MEDS ORDERED: ONDANSETRON 4 MG/2 ML VIAL IVP PRN (20:04)
[2018-08-05] MEDS ORDERED: ACETAMINOPHEN 325 MG TAB PO PRN (20:04)
[2018-08-05] MEDS ORDERED: oxyCODONE IR 5 MG TAB PO PRN (20:04)
[2018-08-05] MEDS ORDERED: LORazepam 2 MG/ML INJ IVP PRN (20:04)
[2018-08-05] MEDS ORDERED: ONDANSETRON DISINTEGRATING 4 MG TAB PO PRN (20:04)
--- NOTE | 2018-08-05 20:17 | PDGENHP ---
History and Physical - Chief Complaint difficulty walking/n/v - History of Present Illness 62 yo F with PMH that includes seizure x 1 eleven years ago as well as migraine presenting with recurrence of difficulty walking associated with n/v and diplopia. Patient has been seen at this hospital for similar issues most recently 2 weeks ago in the ER and prior to that had 2 hospitalizations for the same sxs in 2016 and 2017. She has been seen by neurology both on prior IP stays and as an OP and the diagnosis has been felt to be either peripheral vertigo syndrome or migraine variant with negative workup including brain and spinal MRIs and sxs that improved on prednisone. She notes that up until this episode, her last episodes were a year apart and less severe. She was worked up in the ER with brain MRI that was normal, labs unremarkable, however despite multiple medications including dexamethasone and migraine cocktail she was unable to walk and continued to have n/v and gait instability. On exam she had severe horizontal nystagmus and significant ataxia with ambulation. She specifically denies any true vertigo sxs and has a hard time describing what she is experiencing when she tries to walk--she feels there is some weakness contributing but it comes and goes and seems to be only present when she is trying to walk. She did experience temporary diplopia today which she has never experienced in the past and led to her decision to come to ER today. History Information - Allergies/Home Medication List Allergies/Adverse Reactions: tramadol Allergy (Verified 07/20/18 06:04) Home Medications: Venlafaxine Xr [Effexor Xr] 300 mg PO DAILY 10/30/16 [Last Taken 08/05/18 07:45] lamoTRIgine [LamICTAL XR] 300 mg PO HS 10/30/16 [Last Taken 08/04/18] Aspirin [Aspirin 325 mg (*)] 325 mg PO DAILY PRN 08/05/18 [Last Taken 3 Weeks Ago ~07/15/18] Herbals/Supplements -Info Only 1 ea PO DAILY 08/05/18 [Last Taken 08/05/18] Ibuprofen [Motrin (*)] 400 mg PO Q6H PRN 08/05/18 [Last Taken 1 Week Ago ~] Levothyroxine [Synthroid 88 mcg (*)] 88 mcg PO DAILY06 08/05/18 [Last Taken 07:45] Magnesium Oxide [Magnesium] 400 mg PO HS 08/05/18 [Last Taken 08/04/18] Ondansetron Odt [Zofran Odt 4 mg (*)] 4 mg PO Q4H PRN 08/05/18 [Last Taken 08/05 14:00] Polyethylene Glycol 3350 [Miralax 17 gm (*)] 17 gm PO DAILY PRN 08/05/18 [Last Taken 1 Week Ago ~07/29/18] Promethazine HCl [Phenergan] 25 mg RC BID PRN 08/05/18 [Last Taken 08/05/18 11: 00] Rizatriptan Benzoate [Rizatriptan] 10 mg PO ONCE 08/05/18 [Last Taken 08/05/18 09:00] SUMAtriptan [Imitrex Sc 6 MG Inj (RX)] 6 mg SQ Q2H PRN MDD 12mg 08/05/18 [Last Taken 2 Weeks Ago ~07/22/18] Tetrahydrozoline 0.05% [Visine (*)] 1 drop EACHEYE BID PRN 08/05/18 [Last Taken Unknown] I have personally reviewed and updated: family history, medical history, social history, surgical history - Past Medical History hypertension, migraines, psychiatric history (depression) Additional medical history: seizure disorder (one GTC seizure 11 years ago, on lamictal since). chronic pain. degenerative disc disease. hypothyroid - Surgical History Additional surgical history: R hip labrum tear repair. laminectomy L5-S1 - Family History Positive for: cancer (mother and sister both with NHL) Additional family history: M: lymphoma. F: brain tumor. 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 Lives with boyfriend. Review of Systems Review of Systems: ROS: 10pt was reviewed & negative except for what was stated in HPI & below Physical Exam Physical Exam: Temp Pulse Resp BP Pulse Ox 36.7 C 113 H 16 119/68 93 08/05/18 14:34 08/05/18 19:37 08/05/18 19:37 08/05/18 19:37 08/05/18 19:37 O2 (L/minute) 2 Constitutional: no apparent distress, appears nourished Eyes: PERRL, anicteric sclera, other (coarse vertical nystagmus bilaterally) Ears, Nose, Mouth, Throat: moist mucous membranes, hearing normal Cardiovascular: regular rate and rhythym, no murmur, rub, or gallop, No edema Respiratory: no respiratory distress, no rales or rhonchi Gastrointestinal: normoactive bowel sounds, soft, non-tender abdomen Genitourinary: no bladder tenderness Skin: warm, normal color Musculoskeletal: full muscle strength, No asymmetric calves Neurologic: AAOx3, CN II-XII Intact Psychiatric: interacting appropriately, not anxious, not encephalopathic Lab Data & Imaging Review 08/05/18 19:45 08/05/18 19:45 Visualized and Interpreted imaging results: Yes Interpretation: brain MRI : unremarkable Assessment & Plan Assessment: BPPV (benign paroxysmal positional vertigo) (Acute) 62 yo F with hx of a one time seizure on chronic antiepileptics as well as hypothyroid and recurrent ataxia presenting with ataxia/diplopia and n/v # recurrent ataxia/n/v: 3rd hospitalization for the same in the last couple of years with significant w/u including multiple brain MRIs (including today) as well as C/T/L spine MRI and evaluation by neurology. [place] to be either peripheral vertigo syndrome such as BPPV or related to atypical migraine. Sxs now recurred twice in the last 2 weeks and severe this time--unable to ambulate and significant nystagmus on exam. Will monitor overnight, continue steroids and prn antiemetics and meclizine. Will consult neurology and pt/ot for possible Zuleyma maneuver. Patient with plans to f/u with ENT after discharge. # hx of seizure: patient with hx of single seizure episode 11 years ago attributed potentially to tramadol per her report for which she continues daily anti epileptics--per neuro notes this is per her choice, will continue lamictal # hypothyroid: continue synthroid, recent tsh wnl # migraine: continued on her home regimen including imitrex and rixatriptan # observation status # Patient new to my care. Old records reviewed and summarized as above. Care plan reviewed with ER doctor as above, further hx obtained from boyfriend present at bedside.
[2018-08-05] MEDS ORDERED: ASPIRIN 325 MG TAB PO PRN (20:29)
[2018-08-05] MEDS ORDERED: IBUPROFEN 200 MG TAB PO PRN (20:29)
[2018-08-05] MEDS ORDERED: POLYETHYLENE GLYCOL 3350 17 GM PKT PO PRN (20:29)
[2018-08-05] MEDS ORDERED: TETRAHYDROZOLINE 0.05% 15 ML OPHT.BTL EACHEYE PRN (20:29)
[2018-08-05 20:41] LABS: PLATELET COUNT 357 10^3/uL (150-400)
[2018-08-05] MEDS ORDERED: Lamotrigine [Lamictal Xr] 300 MG PO SCH (21:00)
[2018-08-05] MEDS: MAGNESIUM OXIDE 400 MG TAB PO SCH (23:11)
[2018-08-05] MEDS: NS 1,000 ML IV SCH (23:11)
[2018-08-05] MEDS: lamoTRIgine 100 MG TAB PO SCH (23:11)
[2018-08-05] MEDS: MECLIZINE HCL 12.5 MG TAB PO PRN (23:30)
[2018-08-06] MEDS ORDERED: NS 500 ML IV ONE ×2 (00:42)
[2018-08-06] MEDS: NS 1,000 ML IV SCH ×2 (01:31→03:01)
[2018-08-06] MEDS ORDERED: NS 1,000 ML IV ONE (01:35)
[2018-08-06] MEDS: LEVOTHYROXINE 88 MCG TAB PO SCH (04:59)
[2018-08-06] MEDS: lamoTRIgine 100 MG TAB PO SCH ×2 (08:55→21:00)
[2018-08-06] MEDS: predniSONE 20 MG TAB PO SCH (08:55)
[2018-08-06] MEDS: VENLAFAXINE XR 150 MG CAP PO SCH (08:55)
--- NOTE | 2018-08-06 10:00 | HOSPPROG ---
Hospitalist Progress Note Assessment/Plan: 62 yo F with hx of a one time seizure on chronic antiepileptics as well as hypothyroid and recurrent ataxia presenting with ataxia/diplopia and n/v. First encounter, chart reviewed, Reviewed her care w Dr Lugo. # recurrent ataxia/n/v -3 rd hospitalization for similar symptoms -thought to be peripheral vertigo (BPPV) or migraine vs primary vestibulopathy -MRI is assuring and stable -recommedation is prednisone for 5 days w f/u w ENT - #hypotension -had been vomiting -baseline bp is 90 systolic -was given 2 liters of fluid last night -+ orthostasis -Effexor could also lower her bp # hx of seizure - patient with hx of single seizure episode 11 years ago attributed potentially to tramadol - on Lamictal # hypothyroid - Synthroid # migraine: continued on her home regimen including Imitrex and rizatriptan -concern for atypical migraine -dc on steroids x 5 days -#plan: PT and OT to evaluate her today, had a discussion w the patient and her . They are hopeful to get clear cut answers to the above. They will f/ u w Dr Amin and ENT. Subjective: Bella is feeling nauseated during my evalution. Says she gets dizzy w walking. Objective: Vital Signs Temp Pulse Resp BP Pulse Ox 36.3 C 91 18 100/62 94 08/06/18 07:40 08/06/18 07:40 08/06/18 07:40 08/06/18 07:40 08/06/18 07:40 Laboratory Results 08/05/18 19:45 08/05/18 19:45 08/05/18 08/06/18 08/07/18 05:59 05:59 05:59 Intake Total 1200 Output Total 525 200 Balance 675 -200 - Physical Exam Constitutional: uncomfortable Eyes: PERRL, other (+mild horizontal nystagmus) Ears, Nose, Mouth, Throat: hearing normal Cardiovascular: regular rate and rhythym Respiratory: no respiratory distress Gastrointestinal: normoactive bowel sounds Skin: warm Musculoskeletal: generalized weakness Neurologic: AAOx3 Psychiatric: interacting appropriately ICD10 Worksheet Patient Problems: Problems Problem Status Onset BPPV (benign paroxysmal positional vertigo) Acute Ataxia Acute Atypical migraine Acute Dehydration Acute Diarrhea Acute Dizziness Acute Leg weakness Acute Vomiting Acute
--- NOTE | 2018-08-06 10:29 | GCON ---
[f rep st] CONSULTATION NEUROLOGY CONSULT DATE OF CONSULTATION: 08/06/2018 REFERRING PHYSICIAN: Teri Martinez MD CHIEF COMPLAINT: Ataxia, dizziness, vomiting, and nausea. HISTORY OF PRESENT ILLNESS: The patient is a very pleasant 62-year-old lady, who has been evaluated as an inpatient and is followed as an outpatient by my colleague, Dr. Amin, in Neurology. She has had an extensive workup for these recurrent symptoms of dizziness and vomiting symptomatology over the last 2+ years. She has had 4 brain MRIs; MRI of her thoracic, lumbar, and cervical spine in 2017. EEG, carotid ultrasound, and echocardiogram. Please see notes for details. In summary, Dr. Amin has diagnosed this to be either a migraine variant, vestibular migraine, or primary vestibulopathy. She had a recurrent symptom that was more severe than usual, and it was the second one in a couple of weeks. Therefore, they came to the emergency department. Dr. Amin had seen them recently and suggested a burst of steroids, but they did not do this. Because of her nausea and vomiting, they felt like she would not be able to keep it down. She received some IV treatments in the ER and is now much better. Indeed, the initial intake showed nystagmus, which is no longer present. Therefore, she is subjectively and objectively improved now this morning. She had a repeat MRI brain last night showing no acute abnormalities. No stroke. REVIEW OF SYSTEMS: A 10-point review of systems was done and only pertinent to the HPI. For family history, social history, home medications, and allergies see Dr. Martinez's H and P. PHYSICAL EXAM: VITAL SIGNS: Blood pressure now is 100/62, temperature 36.3, and respiratory rate 17. GENERAL: No acute distress. Very pleasant. Higher mental function normal. Lucid. No aphasia. CRANIAL NERVE EXAM: She has no nystagmus now on exam. Face is symmetric. Extraocular movements are full. Tongue is midline. MOTOR EXAM: She has no focal weakness. Tone is normal. COORDINATION AND GAIT: [id number] is normal bilaterally. No ataxia in her upper extremities. IMPRESSION/PLAN: 1. Dizziness. She has a tentative diagnosis of migraine variant versus vestibular migraine versus vestibulopathy. Fortunately, her extensive neurologic evaluation has been negative for mass, tumor, or cerebrovascular disease/stroke. She was counseled at length. She has improved again with intravenous treatments. Going forward, she can receive a total of 5 days of prednisone and then discontinue. She had significant vomiting prior to admission. Therefore, she was likely dehydrated, which affected her blood pressure. She has received intravenous fluids, which have improved this. She will have outpatient ENT consultation to look for a primary vestibulopathy. After this evaluation is done, she will follow up with Dr. Amin as an outpatient to review her recent hospitalization and ENT workup. Certainly, other considerations including testing or referral to subspecialists can be considered by Dr. Amin. No further recommendations. We will sign off and follow up as needed. Please do not hesitate to call if there are any questions or changes in neurologic status with this very pleasant patient. Seventy total minutes of floor time reviewing extensive inpatient outpatient records, over 50% in counseling and coordination of care. /[id number]/MODL MTDD
[2018-08-06] MEDS: MECLIZINE HCL 12.5 MG TAB PO PRN (11:19)
--- NOTE | 2018-08-06 11:47 | ASMTCMCOM ---
CM Note CM Note Notes: Pt admitted to hospital again for similar symptoms of vertigo, dizziness, and vomiting. All MRIs of brain normal, pt will f/u out pt with neurologist Dr Amin. She lives at home with her boyfriend and works for [employer]. Anticipate she will dc independent when medically stable. CM available for changes. DC Plan: Independent Date Signed: 08/06/2018 11:41 AM Electronically Signed By:Sabra Valadez RN
--- NOTE | 2018-08-06 17:39 | PDMN ---
Medical Necessity Medical necessity: Change to inpt as of 08/06/18 @ 17:01, meets inpt criteria per MD order and MCG M-152, Dizziness. 62 y/o w/hx recurrent ataxia and one- time seizure presented w/ataxia/diplopia/N/V. Neuro consult. Upgraded to inpt as pt not safe to return home w/persistent dizziness/weakness requires ongoing monitoring, cont IVF, IV antiemetics.
[2018-08-06] MEDS: MAGNESIUM OXIDE 400 MG TAB PO SCH (21:00)
[2018-08-07] MEDS: LEVOTHYROXINE 88 MCG TAB PO SCH (06:55)
[2018-08-07] MEDS: lamoTRIgine 100 MG TAB PO SCH (07:24)
[2018-08-07] MEDS: VENLAFAXINE XR 150 MG CAP PO SCH (07:24)
[2018-08-07] MEDS: predniSONE 20 MG TAB PO SCH (07:25)
[2018-08-07 08:02] VITALS: BP 110/66
--- NOTE | 2018-08-07 09:38 | HOSPPROG ---
Hospitalist Progress Note Assessment/Plan: 62 yo F with hx of a one time seizure on chronic antiepileptics as well as hypothyroid and recurrent ataxia presenting with ataxia/diplopia and n/v. # recurrent ataxia/n/v -3 rd hospitalization for similar symptoms -thought to be peripheral vertigo (BPPV) or migraine vs primary vestibulopathy -MRI is assuring and stable -recommendation is prednisone for total of 5 days -has an appt w ENT this morning -has a low cortisol level-further f/u w PCP #hypotension -had been vomiting -baseline bp is 90 systolic -was given 2 liters of fluid -she is feeling much better -+ orthostasis -Effexor could also lower her bp # hx of seizure - patient with hx of single seizure episode 11 years ago attributed potentially to tramadol - on Lamictal # hypothyroid - Synthroid # migraine: continued on her home regimen including Imitrex and rizatriptan -concern for atypical migraine -dc on steroids -#plan: f/u with Dr Amin and ENT this morning. Subjective: Bella is feeling much better, has no complaints. Objective: Vital Signs Temp Pulse Resp BP Pulse Ox 36.6 C 87 16 110/66 91 L 08/07/18 08:00 08/07/18 08:00 08/07/18 08:00 08/07/18 08:00 08/07/18 08:00 08/06/18 08/07/18 08/08/18 05:59 05:59 05:59 Intake Total 500 Balance 500 - Physical Exam Constitutional: no apparent distress, appears nourished, not in pain Eyes: PERRL Ears, Nose, Mouth, Throat: hearing normal Respiratory: no respiratory distress Skin: warm Musculoskeletal: full muscle strength Neurologic: AAOx3 Psychiatric: interacting appropriately ICD10 Worksheet Patient Problems: Problems Problem Status Onset BPPV (benign paroxysmal positional vertigo) Acute Ataxia Acute Atypical migraine Acute Dehydration Acute Diarrhea Acute Dizziness Acute Leg weakness Acute Vomiting Acute
--- NOTE | 2018-08-07 12:01 | GDS ---
[f rep st] DISCHARGE SUMMARY DISCHARGE DIAGNOSES: 1. Recurrent ataxia with associated nausea and vomiting. 2. Hypotension. 3. History of seizure. 4. Hypothyroidism. 5. Migraines. CONSULTATION: Dr. Sidney Lugo. HOSPITAL COURSE: Briefly, the patient is a 62-year-old woman who has issues with difficulty with walking associated with nausea, vomiting and diplopia. She was seen 2 weeks ago in the emergency room and prior to that has had 2 hospitalizations with the same symptoms in 2016 and 2017. She has had multiple workups. On admission she had significant severe horizontal nystagmus and ataxia , in addition her blood pressure was quite low. She was treated with IV fluids as well as oral steroids. She had an MRI performed which showed nothing acute. She was seen and evaluated by Dr. Lugo with Neurology. His impression is that she has a tentative diagnosis of migraine variant versus a vestibular migraine versus vestibulopathy. She will be seeing Ear, Nose and Throat specialist today. In addition she will follow up with Dr. Amin in the outpatient setting. HOSPITAL COURSE: 1. Recurrent ataxia with nausea and vomiting. Her MRI is assuring. She will follow up with ENT this morning, in addition has a low cortisol level, to follow up with her PCP. 2. Hypotension. This is due to vomiting. Her systolic blood pressure is running in the 90s. Today, she is doing markedly better. Reviewed with the patient that the Effexor could also cause a lower blood pressure, to follow up with her PCP. 3. History of seizure. She had a single episode 11 years ago attributed to tramadol. She is on Lamictal for this. 4. Hypothyroidism on Synthroid. 5. Migraine. There is a concern this is an atypical migraine. DISCHARGE CONDITION: Stable. Blood pressure is 110/66, heart rate of 87, respiratory rate is 16, O2 sats on room air 91%, temperature 36.6 Celsius. MEDICATIONS AT DISCHARGE: Please see the EMR. DISCHARGE INSTRUCTIONS: 1. To see an ENT as scheduled. 2. Follow up with Dr. Amin. 3. Take the prednisone as instructed. 4. She has a low cortisol level. Follow up with her primary care provider. /[id number]/MODL MTDD
== END 2018-08-07 10:05 | disposition home or self-care (01) | DRG 93 ==
LOC: F3E 20:58 → OBSVTOIN 08-06 17:01
PROVIDERS: ADMIT Internal Medicine; ATTEND Internal Medicine
DX: R27.0 Ataxia, unspecified (principal); R11.2 Nausea with vomiting, unspecified; I95.9 Hypotension, unspecified; E03.9 Hypothyroidism, unspecified; G43.909 Migraine, unspecified, not intractable, without status migrainosus; G40.909 Epilepsy, unspecified, not intractable, without status epilepticus; I10 Essential (primary) hypertension; E86.0 Dehydration
CPT/HCPCS: 96374; 97112-GP; 97162-GP; 97166-GO; 97535-GO; G0378; J1100; J1885; J2060; J2405; J2765; J7512

== ENCOUNTER → 2018-08-10 | Outpatient (CLI) | payer OTHER | LOC: FIMAGING 15:37 | PROVIDERS: ATTEND Physician Assistant | DX: R42 Dizziness and giddiness (principal) | CPT/HCPCS: A9585 ==

== ENCOUNTER → 2018-10-29 | Outpatient (CLI) | payer OTHER | LOC: FIMAGING 13:29 | PROVIDERS: ATTEND Internal Medicine | DX: Z12.31 Encounter for screening mammogram for malignant neoplasm of breast (principal); Z80.3 Family history of malignant neoplasm of breast ==